=== PATIENT | male | born 1990 | race Caucasian/White ===

== ENCOUNTER 2017-10-12 12:56 | Observation (INO) | payer MEDICAID, OTHER ==
[~2017-10-12] VITALS: Ht 170.2 cm; Wt 84.1 kg
[~2017-10-12 12:56] MED LIST: ADDE30XR PO; DIPH50TA PO; IPRA17I INH; SERO100T PO; TAB-TAB PO; VENTAER INH; ZYRT10TA12 PO
[2017-10-12 12:58] VITALS: BP 159/86; PULSE 118; RESP 26; TEMP 98.8; O2SAT 98
--- NOTE | 2017-10-12 14:19 | PD ---
HPI Chief Complaint: Complaint Time Seen by Provider: 14:18 Travel History International Travel<30 days: No Contact w/Intl Traveler<30days: No Traveled to known affect area: No History of Present Illness HPI 27-year-old male presents with worsening left flank pain, with history of 5 millimeter kidney stone with previous stent placement 3 weeks ago by urologist in [facility]. The patient reports fevers over the past 2 weeks of up to 102. He has been seen multiple times at [facility], treated with outpatient Keflex and Pyridium. Patient now has severe pain, nausea, and vomiting today. Patient states he finished his Keflex and Pyridium approximately one week ago. He feels he is having urinary retention, and burning and hematuria with urination. Pain is thought to be 10 over 10 according to the patient. Patient states he is allergic to aspirin, insect venom, and tramadol. PFSH Past Medical History Asthma: Yes Blood Disorders: No Cancer: No Cardiovascular Problems: No Endocrine: No Genitourinary: No Immune Disorder: No Musculoskeletal: No Neurologic: No Reproductive: No Respiratory: Yes Social History Alcohol Use: No Tobacco Use: Yes (PACK AND HALF) Substance Use: No Allergies-Medications (Allergen,Severity, Reaction): Coded Allergies: aspirin (Verified Allergy, Severe, SEVERE BLEEDING, 10/12/17) garlic (Verified Allergy, Intermediate, itch, 10/12/17) throat itch tramadol (Verified Allergy, Intermediate, HIVES, 10/12/17) insect venom (Unverified Adverse Reaction, Severe, 10/12/17) Reported Meds & Prescriptions Reported Meds & Active Scripts Active Reported Ventolin Hfa 18 GM Inh (Albuterol Sulfate) 90 Mcg/Act Aer 2 Puff INH Q4-6H PRN Tylenol Extra Strength (Acetaminophen) 500 Mg Tablet Diphenhydramine (Diphenhydramine HCl) 25 Mg Cap 25 Mg PO HS PRN Oxycodone-Acetaminophen 5-325 mg Tab 1 Tab PO Q6H PRN Review of Systems Except as stated in HPI: all other systems reviewed are Neg General / Constitutional: Positive: Fever (not currently.), Chills Eyes: No: Visual changes HENT: No: Headaches Cardiovascular: No: Chest Pain or Discomfort Respiratory: No: Shortness of Breath Gastrointestinal: Positive: Nausea, Vomiting, No: Diarrhea, Abdominal Pain Genitourinary: Positive: Dysuria, Hematuria, Decreased Urinary Output, Flank Pain Musculoskeletal: No: Pain Skin: No Rash Neurologic: No: Weakness Psychiatric: No: Depression Endocrine: No: Polydipsia Hematologic/Lymphatic: No: Easy Bruising Physical Exam Narrative GENERAL: Patient is noted be in moderate distress. SKIN: Warm and dry. Normal color. Normal turgor. Mild diaphoresis HEAD: Atraumatic. Normocephalic. EYES: Pupils equal and round. No scleral icterus. No injection or drainage. ENT: No nasal bleeding or discharge. Mucous membranes pink and moist. Pharynx is clear. Airway is patent. NECK: Trachea midline. Supple and nontender. CARDIOVASCULAR: Regular rate and rhythm. RESPIRATORY: No accessory muscle use. Clear to auscultation. Breath sounds equal bilaterally. GASTROINTESTINAL: Abdomen soft, non-tender, nondistended. Hepatic and splenic margins not palpable. Positive CVA tenderness on the left. MUSCULOSKELETAL: Extremities without clubbing, cyanosis, or edema. No obvious deformities. NEUROLOGICAL: Awake and alert. No obvious cranial nerve deficits. Motor grossly within normal limits. Five out of 5 muscle strength in the arms and legs. Normal speech. PSYCHIATRIC: Appropriate mood and affect; insight and judgment normal. Data Data Last Documented VS Vital Signs Date Time Temp Pulse Resp B/P (MAP) Pulse Ox O2 Delivery O2 Flow Rate FiO2 10/12/17 14:36 16 10/12/17 12:58 98.8 118 159/86 (110) 98 Orders Orders Complete Blood Count With Diff (10/12/17 14:30) Comprehensive Metabolic Panel (10/12/17 14:30) Ua Includes Microscopic (10/12/17 14:30) Ct Abd/Pel W/O Iv Contrast (10/12/17 14:30) Iv Access Insert/Monitor (10/12/17 14:30) Ketorolac Inj (Toradol Inj) (10/12/17 14:30) Ondansetron Inj (Zofran Inj) (10/12/17 14:30) Sodium Chloride 0.9% Flush (Ns Flush) (10/12/17 14:30) Morphine Inj (Morphine Inj) (10/12/17 14:30) Sodium Chlor 0.9% 1000 Ml Inj (Ns 1000 M (10/12/17 14:30) Lactic Acid (10/12/17 14:40) Blood Culture (10/12/17 14:40) Ceftriaxone Inj (Rocephin Inj) (10/12/17 16:00) Labs Laboratory Tests Test 10/12/17 14:40 White Blood Count 9.8 TH/MM3 Red Blood Count 4.40 MIL/MM3 Hemoglobin 13.5 GM/DL Hematocrit 39.8 % Mean Corpuscular Volume 90.4 FL Mean Corpuscular Hemoglobin 30.6 PG Mean Corpuscular Hemoglobin Concent 33.8 % Red Cell Distribution Width 13.4 % Platelet Count 218 TH/MM3 Mean Platelet Volume 9.6 FL Neutrophils (%) (Auto) 65.7 % Lymphocytes (%) (Auto) 24.9 % Monocytes (%) (Auto) 6.6 % Eosinophils (%) (Auto) 2.2 % Basophils (%) (Auto) 0.6 % Neutrophils # (Auto) 6.4 TH/MM3 Lymphocytes # (Auto) 2.4 TH/MM3 Monocytes # (Auto) 0.7 TH/MM3 Eosinophils # (Auto) 0.2 TH/MM3 Basophils # (Auto) 0.1 TH/MM3 CBC Comment DIFF FINAL Differential Comment Urine Color LIGHT-RED Urine Turbidity CLEAR Urine pH 6.5 Urine Specific [place] 1.021 Urine Protein 100 mg/dL Urine Glucose (UA) NEG mg/dL Urine Ketones NEG mg/dL Urine Occult Blood LARGE Urine Nitrite NEG Urine Bilirubin NEG Urine Urobilinogen LESS THAN 2.0 MG/DL Urine Leukocyte Esterase SMALL Urine RBC /hpf Urine WBC 31 /hpf Urine Bacteria FEW /hpf Urine Mucus FEW /lpf Blood Urea Nitrogen 11 MG/DL Creatinine 1.01 MG/DL Random Glucose 105 MG/DL Total Protein 7.1 GM/DL Albumin 3.4 GM/DL Calcium Level 8.6 MG/DL Alkaline Phosphatase 68 U/L Aspartate Amino Transf (AST/SGOT) 13 U/L Alanine Aminotransferase (ALT/SGPT) 26 U/L Total Bilirubin 0.1 MG/DL Sodium Level 143 MEQ/L Potassium Level 3.7 MEQ/L Chloride Level 108 MEQ/L Carbon Dioxide Level 27.3 MEQ/L Anion Gap 8 MEQ/L Estimat Glomerular Filtration Rate 89 ML/MIN Lactic Acid Level 1.4 mmol/L MDM Medical Decision Making Medical Screen Exam Complete: Yes Emergency Medical Condition: Yes Medical Record Reviewed: Yes Differential Diagnosis Renal colic. Pyelonephritis. Infected kidney stone. Urine a tract infection. Fever. Intractable pain. Narrative Course Patient is in pain but medically stable at time of exam. Labs ordered include CBC, CMP, blood cultures 2, lactic acid, and urinalysis. IV access is obtained patient is given 30 mg Toradol IV as well as 2 mg morphine IV, Zofran 4 mg IV. Patient is given 1000 mL normal saline bolus. CT the abdomen and pelvis without contrast is ordered. CT shows: 1. One there are 2 punctate nonobstructing stones seen within the collecting system of the right kidney. There is no hydronephrosis. No stone is seen within the right ureter. 2. There is a ureteral stent on the left. There is a 2-3 mm stone seen adjacent to the stent in the mid aspect of the left ureter. 3. No free air or free fluid is seen within the abdomen. Labs show normal CBC. Urinalysis shows to be light red, there is 100 protein, large occult blood, small leukocyte esterase, VPCs per high-power field, a few bacteria. CMP showed normal BUN and creatinine, lactic acid is 1.4 otherwise unremarkable. Patient is given 1000 mg Rocephin IV. The patient's intractable pain and question of urinary tract infection, I feel he warrants observation and consult with the urologist. Call is placed to the hospitalist for admission. Diagnosis Primary Impression: Renal colic on left side Additional Impressions: UTI (urinary tract infection) Qualified Codes: N30.01 - Acute cystitis with hematuria Intractable pain Admitting Information Admitting Physician Requests: Observation Condition: Stable Alexander Cherry Oct 12, 2017 14:19
[2017-10-12] MEDS ORDERED: KETOROLAC TROMETHAMINE 30 MG/ML (IVP) VIAL IVP ONE (14:30)
[2017-10-12] MEDS ORDERED: MORPHINE SULFATE 2 MG/ML INJ IV PUSH ONE (14:30)
[2017-10-12] MEDS ORDERED: ONDANSETRON HCL 4 MG/2 ML VIAL IVP ONE (14:30)
[2017-10-12] MEDS ORDERED: SODIUM CHLORIDE 0.9% FLUSH 10 ML FLUSH IVF PRN (14:30)
[2017-10-12] MEDS ORDERED: SODIUM CHLOR 0.9% 1000 ML INJ 1,000 ML IV ONE (14:30)
[2017-10-12] MEDS ORDERED: DIPH25CA PO (14:47)
[2017-10-12] MEDS ORDERED: VENTAER INH (14:47)
[2017-10-12] MEDS ORDERED: ACET-822 (14:47)
[2017-10-12] MEDS ORDERED: OXYC1TAB63 PO (14:47)
--- NOTE | 2017-10-12 15:13 | RADRPT ---
EXAM DATE/TIME: 10/12/2017 15:00 [facility] COMPARISON: No previous studies available for comparison. INDICATIONS : Right flank pain with known 5mm stone. ORAL CONTRAST: No oral contrast ingested. RADIATION DOSE: 7.20 CTDIvol (mGy) MEDICAL HISTORY : None SURGICAL HISTORY : renal stent ENCOUNTER: Initial ACUITY: 3 days PAIN SCALE: 7/10 LOCATION: Right flank TECHNIQUE: Volumetric scanning of the abdomen and pelvis was performed. Using automated exposure control and ad justment of the mA and/or kV according to patient size, radiation dose was kept as low as reasonably achievable to obtain optimal diagnostic quality images. DICOM format image data is available electro nically for review and comparison. FINDINGS: The limited portion of the lung base visualized is clear. Right kidney/ureter: The examination demonstrates 2 punctate nonobstructing stones within the right collecting system. The re is no hydronephrosis. The right ureter is normal in caliber throughout its course. No stones are s een within the ureter. Left kidney/ureter: There is a ureteral stent in place on the left. There is minimal prominence of the collecting system. There are 4 punctate stones within the collecting system measuring approximately 1 mm in size. The s tent is well visualized within the ureter. There is a 2 mm stones seen adjacent to the stent in the m id aspect of the ureter. Bladder: No stones are evident within the bladder. CT source data: The portions of liver and spleen visualized are unremarkable. The pancreas and adrenal glands are int act. The abdominal aorta is normal in caliber. There is no retroperitoneal lymphadenopathy. No free a ir or free fluid is identified. CONCLUSION: 1. One there are 2 punctate nonobstructing stones seen within the collecting system of the right beverly [place]. There is no hydronephrosis. No stone is seen within the right ureter. 2. There is a ureteral stent on the left. There is a 2-3 mm stone seen adjacent to the stent in the m id aspect of the left ureter. 3. No free air or free fluid is seen within the abdomen. Juventino Moreno MD on October 12, 2017 at 15:06 Board Certified Radiologist. This report was verified electronically.
[2017-10-12 15:18] LABS: AUTOMATED NEUTROPHIL # 6.4 TH/MM3 (1.8-7.7); BASOPHIL # 0.1 TH/MM3 (0-0.2); BASOPHIL % 0.6 % (0.0-2.0); EOSINOPHIL # 0.2 TH/MM3 (0-0.4); EOSINOPHIL % 2.2 % (0.0-4.0); HEMATOCRIT 39.8 % (39.0-51.0); HEMOGLOBIN 13.5 GM/DL (13.0-17.0); LYMPH % 24.9 % (9.0-44.0); LYMPHOCYTE # 2.4 TH/MM3 (1.0-4.8); MEAN CELL VOLUME 90.4 FL (80.0-100.0); MEAN CORPUSCULAR HEMOGLOBIN 30.6 PG (27.0-34.0); MEAN CORPUSCULAR HGB CONC 33.8 % (32.0-36.0); MEAN PLATELET VOLUME 9.6 FL (7.0-11.0); MONO % 6.6 % (0.0-8.0); MONOCYTE # 0.7 TH/MM3 (0-0.9); NEUT % 65.7 % (16.0-70.0); PLATELET COUNT 218 TH/MM3 (150-450); RED CELL DISTRIBUTION WIDTH 13.4 % (11.6-17.2); WHITE BLOOD COUNT 9.8 TH/MM3 (4.0-11.0)
[2017-10-12 15:22] LABS: BACTERIA, URINE FEW /hpf; BILIRUBIN, URINE NEG (NEG); BLOOD, URINE LARGE (NEG); GLUCOSE,URINE NEG (NEG); KETONE, URINE NEG (NEG); MUCUS URINE FEW /lpf (OCC); NITRITE,URINE NEG (NEG); PH, URINE 6.5 (5.0-8.5); URINE COLOR LIGHT-RED (YELLW/STRAW); URINE LEUKOCYTE ESTERASE SMALL (NEG)
[2017-10-12 15:52] LABS: ALBUMIN 3.4 GM/DL (3.4-5.0); ALT (GPT) 26 U/L (12-78); AST (GOT) 13 U/L (15-37); BICARBONATE 27.3 MEQ/L (21.0-32.0); BLOOD UREA NITROGEN 11 MG/DL (7-18); CALCIUM 8.6 MG/DL (8.5-10.1); CHLORIDE 108 MEQ/L (98-107); CREATININE 1.01 MG/DL (0.60-1.30); GLOMERULAR FILTRATION RATE 89 ML/MIN (>89); GLUCOSE,RANDOM 105 MG/DL (74-106); SODIUM (NA) 143 MEQ/L (136-145)
[2017-10-12 15:54] LABS: ALKALINE PHOSPHATASE 68 U/L (45-117); TOTAL BILIRUBIN ADULT 0.1 MG/DL (0.2-1.0); TOTAL PROTEIN 7.1 GM/DL (6.4-8.2)
[2017-10-12] MEDS ORDERED: cefTRIAXone INJ 1,000 MG in SODIUM CHLORIDE 0.9% INJ 100 ML IV ONE (16:00)
[2017-10-12] MEDS ORDERED: ACETAMINOPHEN 325 MG TAB PO PRN ×2 (16:45)
[2017-10-12] MEDS ORDERED: NALOXONE HCL 0.4 MG/ML AMP IV PUSH PRN (16:45)
[2017-10-12 16:46] VITALS: BP 102/72; PULSE 88; RESP 14; O2SAT 98
--- NOTE | 2017-10-12 18:02 | HHI.PR ---
Subjective Patient symptoms today CT images reviewed. Patient with stent in good position, stone noted adjacent to stent. No hydronephrosis. Normal WBC, normal Cr. UA with blood, few bacteria. -Recommend pain control with Toradol -Treat suspected UTI with antibiotics -No urological intervention during current hospital stay -Clear for discharge from Urology standpoint. Patient is to follow-up with Urologist in [place] for definitive stone treatment and stent removal -Please call with questions Objective Vital Signs Vital Signs Date Time Temp Pulse Resp B/P (MAP) Pulse Ox O2 Delivery O2 Flow Rate FiO2 10/12/17 16:46 88 14 102/72 (82) 98 Room Air 10/12/17 14:36 16 10/12/17 12:58 98.8 118 26 159/86 (110) 98 Result Diagram: 10/12/17 1440 10/12/17 1440 Imaging Last 24 hours Impressions Abdomen/Pelvis CT 10/12/17 1430 Signed Impressions: Service Date/Time: Thursday, October 12, 2017 15:00 - CONCLUSION: 1. One there are 2 punctate nonobstructing stones seen within the collecting system of the right kidney. There is no hydronephrosis. No stone is seen within the right ureter. 2. There is a ureteral stent on the left. There is a 2-3 mm stone seen adjacent to the stent in the mid aspect of the left ureter. 3. No free air or free fluid is seen within the abdomen. Juventino Moreno MD Medications and IVs Current Medications Medications (Trade) Dose Ordered Sig/Terrance Route Start Time Stop Time Status Last Admin Sodium Chloride 1,000 ml @ 100 mls/hr Q10H IV 10/12/17 16:43 (NS Flush) 2 ml UNSCH PRN IV FLUSH 10/12/17 16:45 (NS Flush) 2 ml BID IV FLUSH 10/12/17 21:00 (Tylenol) 650 mg Q4H PRN PO 10/12/17 16:45 (Zofran Inj) 4 mg Q6H PRN IVP 10/12/17 16:45 (Tylenol) 650 mg Q6H PRN PO 10/12/17 16:45 (Narcan Inj) 0.4 mg UNSCH PRN IV PUSH 10/12/17 16:45 (Sintia-Colace) 1 tab BID PO 10/12/17 21:00 UNV (Morphine Inj) 4 mg Q4H PRN IV PUSH 10/12/17 16:45 UNV Ministerio Brink MD Oct 12, 2017 18:02
[2017-10-12] MEDS: MORPHINE SULFATE 4 MG/ML INJ IV PUSH PRN (18:13)
[2017-10-12 18:14] VITALS: BP 122/75; PULSE 84; RESP 18; TEMP 98.4; O2SAT 98
[2017-10-12] MEDS: ONDANSETRON HCL 4 MG/2 ML VIAL IVP PRN (18:14)
[2017-10-12] MEDS ORDERED: ALBUTEROL SULFATE 90 MCG/ACT HFA 8 GM INHALER INH PRN (19:15)
[2017-10-12] MEDS ORDERED: diphenhydrAMINE HCL 25 MG CAP PO PRN (19:15)
--- NOTE | 2017-10-12 19:17 | HHI.HP ---
[facility] No Primary Care Physician Admission Diagnosis Renal Colic/UTI Diagnoses: Chief Complaint: Flank pain Travel History International Travel<30 Days: No Contact w/Intl Traveler <30 Da: No Traveled to Known Affected Are: No History of Present Illness The patient is a 27-year-old male presenting to the hospital with severe flank pain. He was recently treated at an outside hospital by urology and has a stent in place in the right ureter. He was supposed to return to the outside hospital for further management of his kidney stone, however, he was told that he would have to pay upfront prior to the procedure. He was unable to do so. His pain became worse. He has been urinating blood. He currently reports difficulty urinating but does not want a Vasquez catheter placed at this time. He says he ran out of his pain medications. He says that Flomax helps him urinate. He has been unable to afford a lot of the medications he was discharged on. He has been having such severe pain that he gets nauseous and does vomit. He says he would like to try to eat something. He says that his mother has a kidney condition and he is worried that he has the same thing. He reports coming into the hospital today because he finally had to buckle over because of the pain. Review of Systems ROS Limitations: Clinical Condition Except as stated in HPI: all other systems reviewed are Neg Past Family Social History Past Medical History Insomnia Bipolar disorder Schizophrenia Asthma History of hernias Allergies: Coded Allergies: aspirin (Verified Allergy, Severe, SEVERE BLEEDING, 10/12/17) garlic (Verified Allergy, Intermediate, itch, 10/12/17) throat itch tramadol (Verified Allergy, Intermediate, HIVES, 10/12/17) insect venom (Unverified Adverse Reaction, Severe, 10/12/17) Active Ordered Medications Current Medications Medications (Trade) Dose Ordered Sig/Terrance Route Start Time Stop Time Status Last Admin Sodium Chloride 1,000 ml @ 100 mls/hr Q10H IV 10/12/17 16:43 (NS Flush) 2 ml UNSCH PRN IV FLUSH 10/12/17 16:45 (NS Flush) 2 ml BID IV FLUSH 10/12/17 21:00 (Tylenol) 650 mg Q4H PRN PO 10/12/17 16:45 (Zofran Inj) 4 mg Q6H PRN IVP 10/12/17 16:45 10/12/17 18:14 (Tylenol) 650 mg Q6H PRN PO 10/12/17 16:45 (Narcan Inj) 0.4 mg UNSCH PRN IV PUSH 10/12/17 16:45 (Sintia-Colace) 1 tab BID PO 10/12/17 21:00 (Morphine Inj) 4 mg Q4H PRN IV PUSH 10/12/17 18:00 10/12/17 18:13 (Flomax) 0.4 mg DAILY PO 10/12/17 18:15 Ceftriaxone Sodium 1000 mg/ Sodium Chloride 100 ml @ 200 mls/hr Q24H IV 10/13/17 16:00 (Toradol Inj) 30 mg Q8HR IV PUSH 10/12/17 22:00 10/14/17 14:01 (Percocet 10-325 Mg) 1 tab Q4H PRN PO 10/12/17 19:15 UNV Family History His mother has medullary sponge kidney Social History The patient smokes 1 pack per day. He has rare alcohol use. Physical Exam Vital Signs Vital Signs Date Time Temp Pulse Resp B/P (MAP) Pulse Ox O2 Delivery O2 Flow Rate FiO2 10/12/17 18:47 10/12/17 18:14 98.4 84 18 122/75 (91) 98 Room Air 10/12/17 16:46 88 14 102/72 (82) 98 Room Air 10/12/17 14:36 16 10/12/17 12:58 98.8 118 26 159/86 (110) 98 Physical Exam GENERAL: Patient is noted be in moderate distress. SKIN: Warm and dry. Normal color. Normal turgor. Mild diaphoresis HEAD: Atraumatic. Normocephalic. EYES: Pupils equal and round. No scleral icterus. No injection or drainage. ENT: No nasal bleeding or discharge. Mucous membranes pink and moist. Pharynx is clear. Airway is patent. NECK: Trachea midline. Supple and nontender. CARDIOVASCULAR: Regular rate and rhythm. RESPIRATORY: No accessory muscle use. Clear to auscultation. Breath sounds equal bilaterally. GASTROINTESTINAL: Abdomen soft, tender in the lower quadrants. Hepatic and splenic margins not palpable. Positive CVA tenderness on the left. MUSCULOSKELETAL: Extremities without clubbing, cyanosis, or edema. No obvious deformities. NEUROLOGICAL: Awake and alert. No obvious cranial nerve deficits. Motor grossly within normal limits. Five out of 5 muscle strength in the arms and legs. Normal speech. Laboratory Laboratory Tests Test 10/12/17 14:40 White Blood Count 9.8 Red Blood Count 4.40 Hemoglobin 13.5 Hematocrit 39.8 Mean Corpuscular Volume 90.4 Mean Corpuscular Hemoglobin 30.6 Mean Corpuscular Hemoglobin Concent 33.8 Red Cell Distribution Width 13.4 Platelet Count 218 Mean Platelet Volume 9.6 Neutrophils (%) (Auto) 65.7 Lymphocytes (%) (Auto) 24.9 Monocytes (%) (Auto) 6.6 Eosinophils (%) (Auto) 2.2 Basophils (%) (Auto) 0.6 Neutrophils # (Auto) 6.4 Lymphocytes # (Auto) 2.4 Monocytes # (Auto) 0.7 Eosinophils # (Auto) 0.2 Basophils # (Auto) 0.1 CBC Comment DIFF FINAL Differential Comment Urine Color LIGHT-RED Urine Turbidity CLEAR Urine pH 6.5 Urine Specific [place] 1.021 Urine Protein 100 Urine Glucose (UA) NEG Urine Ketones NEG Urine Occult Blood LARGE Urine Nitrite NEG Urine Bilirubin NEG Urine Urobilinogen LESS THAN 2.0 Urine Leukocyte Esterase SMALL Urine RBC Urine WBC 31 Urine Bacteria FEW Urine Mucus FEW Blood Urea Nitrogen 11 Creatinine 1.01 Random Glucose 105 Total Protein 7.1 Albumin 3.4 Calcium Level 8.6 Alkaline Phosphatase 68 Aspartate Amino Transf (AST/SGOT) 13 Alanine Aminotransferase (ALT/SGPT) 26 Total Bilirubin 0.1 Sodium Level 143 Potassium Level 3.7 Chloride Level 108 Carbon Dioxide Level 27.3 Anion Gap 8 Estimat Glomerular Filtration Rate 89 Lactic Acid Level 1.4 Date/Time Source Procedure Growth Status 10/12/17 14:45 Blood Peripheral Aerobic Blood Culture Pending Received 10/12/17 14:45 Blood Peripheral Anaerobic Blood Culture Pending Received Result Diagram: 10/12/17 1440 10/12/17 1440 Imaging Last Impressions Abdomen/Pelvis CT 10/12/17 1430 Signed Impressions: Service Date/Time: Thursday, October 12, 2017 15:00 - CONCLUSION: 1. One there are 2 punctate nonobstructing stones seen within the collecting system of the right kidney. There is no hydronephrosis. No stone is seen within the right ureter. 2. There is a ureteral stent on the left. There is a 2-3 mm stone seen adjacent to the stent in the mid aspect of the left ureter. 3. No free air or free fluid is seen within the abdomen. Juventino Moreno MD Caprinlaney VTE Risk Assessment Caprini VTE Risk Assessment: Mod/High Risk (score >= 2) Caprini Risk Assessment Model Point Value = 1 Point Value = 2 Point Value = 3 Point Value = 5 Age 41-60 Minor surgery BMI > 25 kg/m2 Swollen legs Varicose veins or History of unexplained or recurrent spontaneous Oral contraceptives or hormone replacement Sepsis (< 1 month) Serious lung disease, including pneumonia (< 1 month) Abnormal pulmonary function Acute myocardial infarction Congestive heart failure (< 1 month) History of inflammatory bowel disease Medical patient at bed rest Age 61-74 Arthroscopic surgery Major open surgery (> 45 min) Laparoscopic surgery (> 45 min) Malignancy Confined to bed (> 72 hours) Immobilizing plaster cast Central venous access Age >= 75 History of VTE Family history of VTE Factor V Leiden Prothrombin [id number] Lupus anticoagulant Anticardiolipin antibodies Elevated serum homocysteine Heparin-induced thrombocytopenia Other congenital or acquired thrombophilia Stroke (< 1 month) Elective arthroplasty Hip, pelvis, or leg fracture Acute spinal cord injury (< 1 month) Prophylaxis Regimen Total Risk Factor Score Risk Level Prophylaxis Regimen 0-1 Low Early ambulation 2 Moderate Order ONE of the following: *Sequential Compression Device (SCD) *Heparin 5000 units SQ BID 3-4 Higher Order ONE of the following medications: *Heparin 5000 units SQ TID *Enoxaparin/Lovenox 40 mg SQ daily (WT < 150 kg, CrCl > 30 mL/min) *Enoxaparin/Lovenox 30 mg SQ daily (WT < 150 kg, CrCl > 10-29 mL/min) *Enoxaparin/Lovenox 30 mg SQ BID (WT < 150 kg, CrCl > 30 mL/min) AND/OR *Sequential Compression Device (SCD) 5 or more Highest Order ONE of the following medications: *Heparin 5000 units SQ TID (Preferred with Epidurals) *Enoxaparin/Lovenox 40 mg SQ daily (WT < 150 kg, CrCl > 30 mL/min) *Enoxaparin/Lovenox 30 mg SQ daily (WT < 150 kg, CrCl > 10-29 mL/min) *Enoxaparin/Lovenox 30 mg SQ BID (WT < 150 kg, CrCl > 30 mL/min) AND *Sequential Compression Device (SCD) Assessment and Plan Assessment and Plan Renal colic The patient has left-sided flank pain and CT of the abdomen showed: there are 2 punctate nonobstructing stones seen within the collecting system of the right kidney; There is no hydronephrosis; No stone is seen within the right ureter; There is a ureteral stent on the left; There is a 2-3 mm stone seen adjacent to the stent in the mid aspect of the left ureter. - Urology currently not recommending any intervention. - Pain control and antiemetics. Standing Toradol added. - IV fluids. - Flomax. - Vasquez placement if patient continues to have difficulty urinating. UTI UA indicative of an infection. The patient reports a recent episode of sepsis. - Follow urine and blood cultures. - Continue IV ceftriaxone. - IV fluids. Mood disorder Currently stable. - Outpatient follow-up. Asthma Respiratory status is currently stable. - Albuterol as needed. - Oxygen as needed. PPx: SCDs Code Status Full Discussed Condition With Pt, Blayne Lewis DO Oct 12, 2017 19:17
[2017-10-12] MEDS: oxyCODONE/ACETAMINOPHEN 10 MG/325 MG TAB PO PRN (20:16)
[2017-10-12] MEDS: TAMSULOSIN HCL 0.4 MG CAP PO SCH (20:16)
[2017-10-12 20:21] VITALS: BP 115/68; PULSE 85; RESP 16; TEMP 98.8; O2SAT 98
[2017-10-12] MEDS: DOCUSATE SODIUM 50 MG/SENNA 8.6 MG TAB PO SCH (21:00)
[2017-10-12 23:00] VITALS: BP 131/73; PULSE 81; RESP 16; TEMP 98.4; O2SAT 99
[2017-10-13] MEDS: KETOROLAC TROMETHAMINE 30 MG/ML (IVP) VIAL IV PUSH SCH ×4 (00:11→22:41)
[2017-10-13] MEDS: SODIUM CHLORIDE 0.9% FLUSH 10 ML FLUSH IV FLUSH SCH ×3 (00:12→21:00)
[2017-10-13] MEDS: SODIUM CHLOR 0.9% 1000 ML INJ 1,000 ML IV SCH ×3 (00:12→13:34)
[2017-10-13] MEDS: MORPHINE SULFATE 4 MG/ML INJ IV PUSH PRN ×2 (02:18→13:33)
[2017-10-13] MEDS: SODIUM CHLORIDE 0.9% FLUSH 10 ML FLUSH IV FLUSH PRN ×5 (02:18→16:13)
[2017-10-13 03:40] VITALS: BP 105/62; PULSE 75; RESP 16; TEMP 98.4; O2SAT 98
[2017-10-13 08:00] VITALS: BP 108/76; PULSE 72; RESP 20; TEMP 97.1; O2SAT 95
[2017-10-13] MEDS: DOCUSATE SODIUM 50 MG/SENNA 8.6 MG TAB PO SCH ×2 (08:25→21:00)
[2017-10-13] MEDS: oxyCODONE/ACETAMINOPHEN 10 MG/325 MG TAB PO PRN ×3 (08:25→20:26)
[2017-10-13] MEDS: TAMSULOSIN HCL 0.4 MG CAP PO SCH (08:25)
[2017-10-13 08:47] LABS: AUTOMATED NEUTROPHIL # 3.8 TH/MM3 (1.8-7.7); BASOPHIL % 0.6 % (0.0-2.0); EOSINOPHIL # 0.2 TH/MM3 (0-0.4); EOSINOPHIL % 2.9 % (0.0-4.0); HEMATOCRIT 38.8 % (39.0-51.0); LYMPH % 41.6 % (9.0-44.0); LYMPHOCYTE # 3.4 TH/MM3 (1.0-4.8); MEAN CELL VOLUME 90.1 FL (80.0-100.0); MEAN CORPUSCULAR HEMOGLOBIN 30.3 PG (27.0-34.0); MEAN CORPUSCULAR HGB CONC 33.6 % (32.0-36.0); MEAN PLATELET VOLUME 9.9 FL (7.0-11.0); MONO % 8.9 % (0.0-8.0); MONOCYTE # 0.7 TH/MM3 (0-0.9); PLATELET COUNT 212 TH/MM3 (150-450); RED BLOOD COUNT 4.31 MIL/MM3 (4.50-5.90); RED CELL DISTRIBUTION WIDTH 13.1 % (11.6-17.2); WHITE BLOOD COUNT 8.2 TH/MM3 (4.0-11.0)
[2017-10-13] MEDS ORDERED: CIPR250T52 PO (08:47)
--- NOTE | 2017-10-13 08:50 | HHI.DCPOC ---
Discharge Care Plan Diagnosis: (1) Kidney stones (2) UTI (urinary tract infection) (3) Renal colic on left side Goals to Promote Your Health * To prevent worsening of your condition and complications * To maintain your health at the optimal level Directions to Meet Your Goals Keep close follow up with your urologist in [place] - recommend follow up early next week in 2-3 days Take your medications as prescribed Follow your dietary instruction Follow activity as directed Keep your appointments as scheduled Take your immunizations and boosters as scheduled If your symptoms worsen call your PCP, if no PCP go to Urgent Care Center or Emergency Room Smoking is Dangerous to Your Health. Avoid second hand smoke Call the 24-hour hour crisis hotline for domestic abuse at [facility] [place] Oct 13, 2017 08:49
[2017-10-13 09:11] LABS: ALBUMIN 3.1 GM/DL (3.4-5.0); AST (GOT) 9 U/L (15-37); BICARBONATE 25.5 MEQ/L (21.0-32.0); BLOOD UREA NITROGEN 9 MG/DL (7-18); CALCIUM 8.8 MG/DL (8.5-10.1); CHLORIDE 106 MEQ/L (98-107); CREATININE 0.62 MG/DL (0.60-1.30); GLOMERULAR FILTRATION RATE 157 ML/MIN (>89); GLUCOSE,RANDOM 85 MG/DL (74-106); SODIUM (NA) 141 MEQ/L (136-145)
[2017-10-13 09:14] LABS: ALKALINE PHOSPHATASE 52 U/L (45-117); ALT (GPT) 22 U/L (12-78); TOTAL BILIRUBIN ADULT 0.2 MG/DL (0.2-1.0); TOTAL PROTEIN 6.5 GM/DL (6.4-8.2)
--- NOTE | 2017-10-13 09:44 | HHI.PR ---
Subjective Remarks Says she has pain in his back and he says she is not going home. Denies fever or chills.No n/v/d/c. No diaphoresis. Objective Vitals Vital Signs Date Time Temp Pulse Resp B/P (MAP) Pulse Ox O2 Delivery O2 Flow Rate FiO2 10/13/17 08:00 97.1 72 20 108/76 (87) 95 10/13/17 03:40 98.4 75 16 105/62 (76) 98 10/13/17 02:23 14 10/13/17 01:11 15 10/12/17 23:00 98.4 81 16 131/73 (92) 99 10/12/17 21:18 15 10/12/17 20:21 98.8 85 16 115/68 (84) 98 10/12/17 18:47 10/12/17 18:14 98.4 84 18 122/75 (91) 98 Room Air 10/12/17 16:46 88 14 102/72 (82) 98 Room Air 10/12/17 14:36 16 10/12/17 12:58 98.8 118 26 159/86 (110) 98 I/O 10/12/17 10/12/17 10/12/17 10/13/17 10/13/17 10/13/17 07:00 15:00 23:00 07:00 15:00 23:00 Intake Total 1100 ml 450 ml Output Total 1050 ml Balance 1100 ml -600 ml Intake Oral 450 ml IV Total 1100 ml Output Urine Total 1050 ml Result Diagram: 10/13/17 0630 10/13/17 0630 Imaging Last Impressions Abdomen/Pelvis CT 10/12/17 1430 Signed Impressions: Service Date/Time: Thursday, October 12, 2017 15:00 - CONCLUSION: 1. One there are 2 punctate nonobstructing stones seen within the collecting system of the right kidney. There is no hydronephrosis. No stone is seen within the right ureter. 2. There is a ureteral stent on the left. There is a 2-3 mm stone seen adjacent to the stent in the mid aspect of the left ureter. 3. No free air or free fluid is seen within the abdomen. Juventino Moreno MD Objective Remarks GENERAL: Patient is noted be in moderate distress. CARDIOVASCULAR: Regular rate and rhythm. RESPIRATORY: No accessory muscle use. Clear to auscultation. Breath sounds equal bilaterally. GASTROINTESTINAL: Abdomen soft, tender in the lower quadrants. Hepatic and splenic margins not palpable. Positive CVA tenderness on the left. MUSCULOSKELETAL: Extremities without clubbing, cyanosis, or edema. No obvious deformities. NEUROLOGICAL: Awake and alert. No obvious cranial nerve deficits. Motor grossly within normal limits. Five out of 5 muscle strength in the arms and legs. Normal speech. A/P Assessment and Plan Renal colic The patient has left-sided flank pain and CT of the abdomen showed: there are 2 punctate nonobstructing stones seen within the collecting system of the right kidney; There is no hydronephrosis; No stone is seen within the right ureter; There is a ureteral stent on the left; There is a 2-3 mm stone seen adjacent to the stent in the mid aspect of the left ureter. Urology currently not recommending any intervention. Pain control and antiemetics. Standing Toradol added. IV fluids. Flomax. Vasquez placement if patient continues to have difficulty urinating. Per Dr Brink urology to have toradol for pain control and also to follow up as OP with his urology Dr in [place]. UTI UA indicative of an infection. The patient reports a recent episode of sepsis. Follow urine and blood cultures. Continue IV ceftriaxone. IV fluids. Mood disorder Currently stable. Outpatient follow-up. Asthma Respiratory status is currently stable. Albuterol as needed. Oxygen as needed. DVT PPx: SCDs Discussed with Patient, nurse Discharge Planning DC home in stable condition to follow up as OP with PCP and his urology Dr [place] for stent retrieval Meds per med reconciliations Activity ad elmer as tolerated Diet regular healthy diet as tolerated DC time > 38 min Freya Navarro MD Oct 13, 2017 09:44
[2017-10-13] MEDS ORDERED: KETO10 PO (10:01)
[2017-10-13 12:00] VITALS: BP 124/76; PULSE 82; RESP 20; TEMP 97.1; O2SAT 98
[2017-10-13] MEDS: ONDANSETRON HCL 4 MG/2 ML VIAL IVP PRN (14:51)
[2017-10-13] MEDS ORDERED: TAMS5CAP PO (15:54)
[2017-10-13 16:00] VITALS: BP 117/61; PULSE 84; RESP 20; TEMP 96.8; O2SAT 96
[2017-10-13] MEDS ORDERED: cefTRIAXone INJ 1,000 MG in SODIUM CHLORIDE 0.9% INJ 100 ML IV SCH (16:00)
[2017-10-13] MEDS ORDERED: OXYB5TAB8 PO (16:25)
[2017-10-13] MEDS ORDERED: OXYBUTYNIN CHLORIDE 5 MG TAB PO ONE (16:30)
[2017-10-13 19:51] VITALS: BP 118/73; PULSE 77; RESP 16; TEMP 98; O2SAT 99
[2017-10-13] MEDS: OXYBUTYNIN CHLORIDE 5 MG TAB PO SCH (22:41)
[2017-10-13 23:01] VITALS: BP 111/69; PULSE 88; RESP 17; TEMP 98.4; O2SAT 98
[2017-10-14] MEDS: MORPHINE SULFATE 4 MG/ML INJ IV PUSH PRN ×2 (01:32→08:11)
[2017-10-14] MEDS: SODIUM CHLOR 0.9% 1000 ML INJ 1,000 ML IV SCH (01:33)
[2017-10-14 03:06] VITALS: BP 106/69; PULSE 66; RESP 16; TEMP 98.7; O2SAT 99
[2017-10-14] MEDS: OXYBUTYNIN CHLORIDE 5 MG TAB PO SCH (05:49)
[2017-10-14] MEDS: KETOROLAC TROMETHAMINE 30 MG/ML (IVP) VIAL IV PUSH SCH (05:50)
[2017-10-14 07:35] VITALS: BP 83/48; PULSE 64; RESP 18; TEMP 98.6; O2SAT 96
[2017-10-14] MEDS: SODIUM CHLORIDE 0.9% FLUSH 10 ML FLUSH IV FLUSH SCH (08:10)
[2017-10-14] MEDS: TAMSULOSIN HCL 0.4 MG CAP PO SCH (08:10)
[2017-10-14] MEDS: DOCUSATE SODIUM 50 MG/SENNA 8.6 MG TAB PO SCH (08:10)
--- NOTE | 2017-10-14 09:24 | HHI.DS ---
Discharge Summary Admission Date Oct 12, 2017 at 16:21 Discharge Date: Oct 14, 2017 Admitting Diagnosis Renal Colic/UTI (1) UTI (urinary tract infection) ICD Code: N39.0 - Urinary tract infection, site not specified Status: Acute (2) Renal colic on left side ICD Code: N23 - Unspecified renal colic Status: Acute (3) Intractable pain ICD Code: R52 - Pain, unspecified Status: Acute (4) Kidney stones ICD Code: N20.0 - Calculus of kidney Procedures none Brief History - From Admission The patient is a 27-year-old male presenting to the hospital with severe flank pain. He was recently treated at an outside hospital by urology and has a stent in place in the right ureter. He was supposed to return to the outside hospital for further management of his kidney stone, however, he was told that he would have to pay upfront prior to the procedure. He was unable to do so. His pain became worse. He has been urinating blood. He currently reports difficulty urinating but does not want a Vasquez catheter placed at this time. He says he ran out of his pain medications. He says that Flomax helps him urinate. He has been unable to afford a lot of the medications he was discharged on. He has been having such severe pain that he gets nauseous and does vomit. He says he would like to try to eat something. He says that his mother has a kidney condition and he is worried that he has the same thing. He reports coming into the hospital today because he finally had to buckle over because of the pain. CBC/BMP: 10/13/17 0630 10/13/17 0630 Significant Findings Laboratory Tests Test 10/12/17 14:40 10/13/17 06:30 Red Blood Count 4.40 MIL/MM3 (4.50-5.90) 4.31 MIL/MM3 (4.50-5.90) Urine Color LIGHT-RED (YELLW/STRAW) Urine Protein 100 mg/dL (NEG-TRACE) Urine Occult Blood LARGE (NEG) Urine Leukocyte Esterase SMALL (NEG) Urine WBC 31 /hpf (0-5) Urine Bacteria FEW /hpf (NONE) Urine Mucus FEW /lpf (OCC) Aspartate Amino Transf (AST/SGOT) 13 U/L (15-37) 9 U/L (15-37) Total Bilirubin 0.1 MG/DL (0.2-1.0) Chloride Level 108 MEQ/L (98-107) Hematocrit 38.8 % (39.0-51.0) Monocytes (%) (Auto) 8.9 % (0.0-8.0) Albumin 3.1 GM/DL (3.4-5.0) Imaging Last Impressions Abdomen/Pelvis CT 10/12/17 1430 Signed Impressions: Service Date/Time: Thursday, October 12, 2017 15:00 - CONCLUSION: 1. One there are 2 punctate nonobstructing stones seen within the collecting system of the right kidney. There is no hydronephrosis. No stone is seen within the right ureter. 2. There is a ureteral stent on the left. There is a 2-3 mm stone seen adjacent to the stent in the mid aspect of the left ureter. 3. No free air or free fluid is seen within the abdomen. Juventino Moreno MD PE at Discharge GENERAL: Patient is noted be in moderate distress. CARDIOVASCULAR: Regular rate and rhythm. RESPIRATORY: No accessory muscle use. Clear to auscultation. Breath sounds equal bilaterally. GASTROINTESTINAL: Abdomen soft, tender in the lower quadrants. Hepatic and splenic margins not palpable. Positive CVA tenderness on the left. MUSCULOSKELETAL: Extremities without clubbing, cyanosis, or edema. No obvious deformities. NEUROLOGICAL: Awake and alert. No obvious cranial nerve deficits. Motor grossly within normal limits. Five out of 5 muscle strength in the arms and legs. Normal speech. Pt update on day of discharge Patient with suicidal ideation yesterday, psych consulted. Cleared by psych for DC. nO events overnight. Patient to f.u with his psych doctor and PCP as OP Hospital Course Renal colic The patient has left-sided flank pain and CT of the abdomen showed: there are 2 punctate nonobstructing stones seen within the collecting system of the right kidney; There is no hydronephrosis; No stone is seen within the right ureter; There is a ureteral stent on the left; There is a 2-3 mm stone seen adjacent to the stent in the mid aspect of the left ureter. Urology currently not recommending any intervention. Pain control and antiemetics. Standing Toradol added. IV fluids. Flomax. Vasquez placement if patient continues to have difficulty urinating. Per Dr Brink urology to have toradol for pain control and also to follow up as OP with his urology Dr james Earl. UTI UA indicative of an infection. The patient reports a recent episode of sepsis. Follow urine and blood cultures. Continue IV ceftriaxone. IV fluids. Mood disorder Currently stable. Outpatient follow-up. Asthma Respiratory status is currently stable. Albuterol as needed. Oxygen as needed. Suicidal ideation: Psych consulted. Cleared for DC to follow up as OP with his psych doctor and PCP DVT PPx: SCDs Discussed with Patient, nurse Discharge Planning DC home in stable condition to follow up as OP with PCP and his urology Dr James Earl for stent retrieval Meds per med reconciliations Activity ad elmer as tolerated Diet regular healthy diet as tolerated Pt Condition on Discharge: Stable Discharge Disposition: Discharge Home Discharge Time: > 30 minutes Discharge Instructions DIET: Follow Instructions for: As Tolerated, No Restrictions Activities you can perform: Regular-No Restrictions Follow up Referrals: PCP Follow-up - 1 Week Urology - 2-3 Days New Medications: Ciprofloxacin (Cipro) 250 Mg Tab 250 MG PO BID for Infection for 7 Days, #14 TAB 0 Refills Ketorolac (Ketorolac) 10 Mg Tab 10 MG PO TID for Pain Management, #30 TAB 0 Refills Oxybutynin (Ditropan) 5 Mg Tab 5 MG PO Q8HR for Urinary Symptom Managemen, #90 TAB 0 Refills Tamsulosin (Flomax) 0.4 Mg Cap 0.4 MG PO HS for Manage Prostate Problems, #30 CAP 0 Refills Continued Medications: Acetaminophen (Tylenol Extra Strength) 500 Mg Tablet Albuterol 18 GM Inh (Ventolin Hfa 18 GM Inh) 90 Mcg/Act Aer 2 PUFF INH Q4-6H PRN for SHORTNESS OF BREATH, #1 INHALER 0 Refills Diphenhydramine (Diphenhydramine) 25 Mg Cap 25 MG PO HS PRN for INSOMNIA, CAP 0 Refills Oxycodone-Acetaminophen (Oxycodone-Acetaminophen) 5-325 mg Tab 1 TAB PO Q6H PRN for PAIN, TAB 0 Refills Freya Navarro MD Oct 14, 2017 09:23
--- NOTE | 2017-10-14 12:47 | PD.PSY.CON ---
Provisional Diagnosis Admission Date Oct 12, 2017 at 16:21 [place] I. Adjustment disorder with depressed mood, history of bipolar disorder, anxiety [place] II. Antisocial personality disorder [place] III. Kidney stone History of Present Illness Service Psychiatry Consult Requested By ER team Reason for Consult SI Primary Care Physician No Primary Care Physician HPI The patient is a 27-year-old man, domiciled with his mother in [place] , employed as a home health aide, with self-reported psychiatric history of schizophrenia, bipolar disorder, antisocial personality disorder, anxiety, 1 previous psychiatric hospitalization in [place], documentation reviewed, he is not in outpatient psychiatric care, no medications, previous suicidal attempts, medical history of asthma, presenting to the hospital with severe flank pain. He was recently treated at an outside hospital by urology and has a stent in place in the right ureter. He was supposed to return to the outside hospital for further management of his kidney stone, however, he was told that he would have to pay upfront prior to the procedure. The patient has left-sided flank pain and CT of the abdomen showed: there are 2 punctate nonobstructing stones seen within the collecting system of the right kidney; There is no hydronephrosis; No stone is seen within the right ureter; There is a ureteral stent on the left; There is a 2-3 mm stone seen adjacent to the stent in the mid aspect of the left ureter. The patient was consulted to psychiatry due to suicidal ideation. On psychiatric Evaluation patient is irritable, complaining of pain, the beginning refusing to stay with psychiatry. She says that he has a history of bad experience with psychiatry. He says that he is not here for psychiatric issues. Patient is reassured and redirected. Patient says that he never expressed suicidal ideation, but he has been in a lot of pain, he has not been given the attention that he needs and he feels that he has been under medicated "and in that context yesterday with extreme pain I say that is why patient is not taking care of prefer to ". At this moment patient reports pain is more under control, patient is future oriented, he said that he wants to have his procedure. He denies depression, denies anxiety, denies psychosis and larry, he denies suicidal and homicidal ideation, he denies visual and auditory hallucinations. Review of Systems Constitutional: DENIES: Diaphoretic episodes, Fatigue, Fever, Weight gain, Weight loss, Chills, Dizziness, Change in appetite, Night Sweats Endocrine: DENIES: Heat/cold intolerance, Polydipsia, Polyuria, Polyphagia Eyes: DENIES: Blurred vision, Diplopia, Eye inflammation, Eye pain, Vision loss , Photosensitivity, Double Vision Ears, nose, mouth, throat: DENIES: Tinnitus, Hearing loss, Vertigo, Nasal discharge, Oral lesions, Throat pain, Hoarseness, Ear Pain, Running Nose, Epistaxis, Sinus Pain, Toothache, Odynophagia Respiratory: DENIES: Apneas, Cough, Snoring, Wheezing, Hemoptysis, Sputum production, Shortness of breath Cardiovascular: DENIES: Chest pain, Palpitations, Syncope, Dyspnea on Exertion , PND, Lower Extremity Edema, Orthopnea, Claudication Gastrointestinal: DENIES: Abdominal pain, Black stools, Bloody stools, Constipation, Diarrhea, Nausea, Vomiting, Difficulty Swallowing, Anorexia Genitourinary: DENIES: Sexual dysfunction, Urinary frequency, Urinary incontinence, Urgency, Hematuria, Dysuria, Nocturia, Penile Discharge, Testicular Pain, Testicular Swelling Musculoskeletal: DENIES: Joint pain, Muscle aches, Stiffness, Joint Swelling, Back pain, Neck pain Integumentary: DENIES: Abnormal pigmentation, Nail changes, Pruritus, Rash Hematologic/lymphatic: DENIES: Bruising, Lymphadenopathy Immunologic/allergic: DENIES: Eczema, Urticaria Neurologic: DENIES: Abnormal gait, Headache, Localized weakness, Paresthesias, Seizures, Speech Problems, Tremor, Poor Balance Psychiatric: DENIES: Anxiety, Confusion, Mood changes, Depression, Hallucinations, Agitation, Suicidal Ideation, Homicidal Ideation, Delusions Past Family Social History Coded Allergies: aspirin (Verified Allergy, Severe, SEVERE BLEEDING, 10/12/17) garlic (Verified Allergy, Intermediate, itch, 10/12/17) throat itch tramadol (Verified Allergy, Intermediate, HIVES, 10/12/17) insect venom (Unverified Adverse Reaction, Severe, 10/12/17) Active Scripts Oxybutynin (Ditropan) 5 Mg Tab, 5 MG PO Q8HR for Urinary Symptom Managemen, #90 TAB 0 Refills Prov:Freya Navarro MD 10/13/17 Tamsulosin (Flomax) 0.4 Mg Cap, 0.4 MG PO HS for Manage Prostate Problems, #30 CAP 0 Refills Prov:Freya Navarro MD 10/13/17 Ketorolac (Ketorolac) 10 Mg Tab, 10 MG PO TID for Pain Management, #30 TAB 0 Refills Prov:Freya Navarro MD 10/13/17 Ciprofloxacin (Cipro) 250 Mg Tab, 250 MG PO BID for Infection for 7 Days, #14 TAB 0 Refills Prov:Negin Milton 10/13/17 Reported Medications Albuterol 18 GM Inh (Ventolin Hfa 18 GM Inh) 90 Mcg/Act Aer, 2 PUFF INH Q4-6H Y for SHORTNESS OF BREATH, #1 INHALER 0 Refills 10/12/17 Acetaminophen (Tylenol Extra Strength) 500 Mg Tablet 10/12/17 Diphenhydramine (Diphenhydramine) 25 Mg Cap, 25 MG PO HS Y for INSOMNIA, CAP 0 Refills 10/12/17 Oxycodone-Acetaminophen (Oxycodone-Acetaminophen) 5-325 mg Tab, 1 TAB PO Q6H Y for PAIN, TAB 0 Refills 10/12/17 Family Psych History Patient says that bipolar disorder runs in his mother's side of his family Social History Patient was born and raised in [facility], he lives in [place] with his mother, he is employed as a home health aide, but , highest level of education is ninth grade Physical Exam Vital Signs Vital Signs Date Time Temp Pulse Resp B/P (MAP) Pulse Ox O2 Delivery O2 Flow Rate FiO2 10/14/17 07:35 98.6 64 18 83/48 (60) 96 10/12/17 18:14 Room Air I/O 10/14/17 10/14/17 10/15/17 08:00 16:00 00:00 Output Total 900 ml Balance -900 ml Lab Results Date/Time Source Procedure Growth Status 10/12/17 14:45 Blood Peripheral Aerobic Blood Culture - Preliminary NO GROWTH IN 2 DAYS Resulted 10/12/17 14:45 Blood Peripheral Anaerobic Blood Culture - Preliminary NO GROWTH IN 2 DAYS Resulted Mental Status Examination Appearance: Appropriate Consciousness: Alert Orientation: x4 Motor Activity: Normal gait Speech: Unremarkable Language: Adequate Fund of Knowledge: Adequate Attention and Concentration: Adequate Memory: Unremarkable Mood: Appropriate Affect: Irritable Thought Process & Associations: Intact Thought Content: Appropriate Hallucination Type: None Delusion Type: None Suicidal Ideation: No Suicidal Plan: No Suicidal Intention: No Homicidal Ideation: No Homicidal Plan: No Homicidal Intention: No Insight: Adequate Judgment: Adequate Assessment & Plan Problem List: (1) Adjustment disorder with depressed mood ICD Codes: F43.21 - Adjustment disorder with depressed mood Assessment & Plan: At the moment of this evaluation the patient does not present any psychiatric symptoms that require an immediate psychiatric attention. The patient denies suicidal and homicidal ideation, he denies visual and auditory hallucinations. He denies depressions anxiety, larry and psychosis. Patient apparently expressed suicidal ideation yesterday in the context of acute pain. He is now future oriented, motivated to continue medical treatment. He has history of antisocial personality disorder and poor impulse control, so manipulative and attention seeking behavior can be expected. He does not meet criteria for involuntary psychiatric admission. Brief supportive psychotherapy and psychoeducation provided. Assessment & Plan Estimated LOS: Tj Mccarthy MD Oct 14, 2017 12:47
== END 2017-10-14 09:31 | disposition home or self-care (01) ==
LOC: NEPD 12:56 → NEDA 16:21 → NEPGCP 18:30
PROVIDERS: ADMIT Hospitalist; ATTEND Hospitalist
DX: N30.01 Acute cystitis with hematuria (principal); N20.0 Calculus of kidney; J45.909 Unspecified asthma, uncomplicated; R45.851 Suicidal ideations; Z87.442 Personal history of urinary calculi; Z88.6 Allergy status to analgesic agent; F17.210 Nicotine dependence, cigarettes, uncomplicated; G47.00 Insomnia, unspecified; F31.9 Bipolar disorder, unspecified; F20.9 Schizophrenia, unspecified; R45.4 Irritability and anger; F43.21 Adjustment disorder with depressed mood
CPT/HCPCS: 74176; 80053; 81001; 83605; 85025; 87040; 96361; 96365; 96375; 96376; 99285; G0378; J0696; J1885; J2270; J2405; J7030